=== PATIENT | male | born 1970 ===

== ENCOUNTER 2019-03-10 22:37 | Emergency (ER) | payer SELFPAY ==
[2019-03-10 23:27] LABS: BASO % 0.4 % (0.0-2.0); EOS # 0.1 K/uL (0.0-0.7); EOS % 1.3 % (0.0-4.0); HEMOGLOBIN 15.6 g/dL (12.0-18.0); LYMPH # 3.1 K/uL (1.0-4.3); LYMPH % 40.5 % (20.0-40.0); MEAN CELL VOLUME 92.9 fL (80.0-94.0); MEAN CORPUSCULAR HEMOGLOBIN 31.4 pg (27.0-31.0); MEAN CORPUSCULAR HGB CONC 33.8 g/dL (33.0-37.0); MEAN PLATELET VOLUME 8.1 fL (7.2-11.7); MONO # 0.7 K/uL (0.0-0.8); MONO % 9.4 % (0.0-10.0); NEUT # 3.7 K/uL (1.8-7.0); NEUT % 48.4 % (50.0-75.0); NRBC % 0.1 % (0.0-2.0); RBC 4.95 Mil/uL (4.40-5.90); RED CELL DISTRIBUTION WIDTH 13.2 % (11.5-14.5); WHITE BLOOD COUNT 7.5 K/uL (4.8-10.8)
[2019-03-10 23:29] LABS: PROTHROMBIN TIME 11.2 SECONDS (9.7-12.2)
[2019-03-10 23:33] LABS: ALB/GLOB RATIO 1.4 (1.0-2.1); ALBUMIN 4.4 g/dL (3.5-5.0); ALT/SGPT 30 U/L (21-72); AST/SGOT 26 U/L (17-59); BLOOD UREA NITROGEN 16 mg/dL (9-20); CALCIUM 9.2 mg/dl (8.6-10.4); GFR NON-AFRICAN AMERICAN > 60
[2019-03-11] MEDS ORDERED: Aspirin 325 mg EC Tablets PO STA (00:11)
--- NOTE | 2019-03-11 00:11 | C.PDOC ---
History Of Present Illness Patient presents with intermittent chest discomfort, unrelated to food, exercise or movement. lasts a few seconds . No f/c/n/v. Speaking in complete sentences Time Seen by Provider: 03/11/19 00:11 Chief Complaint (Nursing): Chest Pain History Per: Patient History/Exam Limitations: no limitations Onset/Duration Of Symptoms: Days (21) Current Symptoms Are (Timing): Still Present Context: Other Severity: Mild Pain Scale Rating Of: 3 Quality: Dull Associated Symptoms: denies: Nausea, Dyspnea Modifying Factors: None Exacerbating Factors: None Alleviating Factors: None Recent travel outside of the [place]: No Additional History Per: Patient Past Medical History Reviewed: Historical Data, Nursing Documentation, Vital Signs Vital Signs: Last Vital Signs Temp 97.3 F L 03/10/19 22:41 Pulse 72 03/10/19 23:11 Resp 18 03/10/19 22:41 BP 131/80 03/10/19 22:41 Pulse Ox 99 03/10/19 22:41 Family History: States: No Known Family Hx - Social History Hx Alcohol Use: No Hx Substance Use: No - Immunization History Hx Tetanus Toxoid Vaccination: No Hx Influenza Vaccination: No Hx Pneumococcal Vaccination: No Review Of Systems Constitutional: Negative for: Fever, Chills Eyes: Negative for: Vision Change ENT: Negative for: Throat Pain Cardiovascular: Positive for: Chest Pain Respiratory: Negative for: Shortness of Breath Gastrointestinal: Negative for: Abdominal Pain Musculoskeletal: Negative for: Back Pain Skin: Negative for: Rash Neurological: Negative for: Weakness Psych: Negative for: Anxiety Physical Exam - Physical Exam Appears: Non-toxic Skin: Warm, Dry Oral Mucosa: Moist Neck: Supple Chest: Symmetrical Cardiovascular: Rhythm Regular Respiratory: No Rales, No Rhonchi, No Wheezing Gastrointestinal/Abdominal: Soft, No Tenderness, No Distention Back: No CVA Tenderness Extremity: No Normal ROM Extremity: Bilateral: Atraumatic Neurological/Psych: Oriented x3 Gait: Steady ED Course And Treatment - Laboratory Results Result Diagrams: 03/10/19 23:18 03/10/19 23:18 Lab Results: PT 11.2 SECONDS (9.7-12.2) 03/10/19 23:18 INR 1.0 03/10/19 23:18 APTT 34 SECONDS (21-34) 03/10/19 23:18 Troponin I < 0.0120 ng/mL (0.00-0.120) 03/10/19 23:18 Total Bilirubin 0.5 mg/dL (0.2-1.3) 03/10/19 23:18 AST 26 U/L (17-59) 03/10/19 23:18 ALT 30 U/L (21-72) 03/10/19 23:18 Alkaline Phosphatase 79 U/L (38-126) 03/10/19 23:18 Total Protein 7.6 g/dL (6.3-8.3) 03/10/19 23:18 Albumin 4.4 g/dL (3.5-5.0) 03/10/19 23:18 Globulin 3.2 gm/dL (2.2-3.9) 03/10/19 23:18 Albumin/Globulin Ratio 1.4 (1.0-2.1) 03/10/19 23:18 ECG: Interpreted By Me, Viewed By Me ECG Rhythm: Sinus Rhythm (65), Nonspecific Changes O2 Sat by Pulse Oximetry: 99 Pulse Ox Interpretation: Normal - Radiology CXR: Interpreted by Me, Viewed By Me CXR Interpretation: No: Infiltrates, Fracture, Pnemothorax Against Medical Advice - AMA Patient Left Against Medical Advice: The patient declines admission to the hospital and wishes to leave the Emergency Department. This action is against my medical advice. This decision was made with informed refusal. The patient was told that admission to the hospital is necessary. Explanation of the reasons why were discussed. The risks of leaving were explained to the patient and include, but are not limited to, worsening of known or currently unknown conditions, permanent disability and from undiagnosed or untreated conditions. The patient has the capacity to make this informed decision and understands my explanation of the current medical problem and risks of leaving. The patient voluntarily accepts these risks and signed an AMA form documenting our conversation. The patient was given the opportunity to ask questions and reconsider. The patient was encouraged to return to the Emergency Department at any time for fur ther care. Disposition Counseled Patient/Family Regarding: Studies Performed, Diagnosis, Need For Followup - Disposition Disposition: AGAINST MEDICAL ADVICE Disposition Time: 00:11 Condition: FAIR Instructions: Chest Pain (DC), Hiatal Hernia (DC) Forms: Unblab (Maltese) - Clinical Impression Clinical Impression: Chest pain, Hiatal hernia
[2019-03-11] MEDS ORDERED: Aspirin 325 mg EC Tablets PO ONE (00:45)
[2019-03-11] MEDS ORDERED: Iodixanol 320 MG/ML 100 ML BOTTLE IV ONE (01:12)
[2019-03-11 03:02] VITALS: BP 115/82; PULSE 83; RESP 18; TEMP 98
[2019-03-11 04:01] VITALS: O2SAT 99
--- NOTE | 2019-03-11 09:23 | RAD ---
Date of service: 03/11/2019 HISTORY: chest pain COMPARISON: None available. TECHNIQUE: 1 view obtained. FINDINGS: LUNGS: No acute consolidation. Diminished inspiratory volume. PLEURA: No significant pleural effusion identified, no pneumothorax apparent. CARDIOVASCULAR: No aortic atherosclerotic calcification present. Normal cardiac size. No pulmonary vascular congestion. OSSEOUS STRUCTURES: No significant abnormalities. VISUALIZED UPPER ABDOMEN: Normal. OTHER FINDINGS: None. IMPRESSION: No acute cardiopulmonary disease appreciated.
--- NOTE | 2019-03-11 11:21 | CT ---
Date of service: 03/11/2019 PROCEDURE: CT Chest with contrast (Pulmonary Angiogram) HISTORY: cp, sob COMPARISON: None available. TECHNIQUE: Axial computed tomography images were obtained of the chest in the pulmonary arterial phase of enhancement. Coronal and sagittal reformatted images were created and reviewed. Intravenous contrast dose: Visipaque 320, 100 cc Radiation dose: Total exam DLP = 531.34 mGy-cm. This CT exam was performed using one or more of the following dose reduction techniques: Automated exposure control, adjustment of the mA and/or kV according to patient size, and/or use of iterative reconstruction technique. FINDINGS: PULMONARY ARTERIES: Unremarkable. No pulmonary embolism. AORTA: No acute findings. No thoracic aortic aneurysm. No aortic atherosclerotic calcification or mural plaque present. LUNGS: Minimal bilateral dependent atelectasis. No nodule, mass or pulmonary consolidation. PLEURAL SPACES: Unremarkable. No effusion or pneumothorax. HEART: The thoracic inlet appears unremarkable. No cardiomegaly. No significant pericardial effusion. The main pulmonary artery is normal in caliber. LYMPH NODES: No significant lymphadenopathy. BONES, CHEST WALL: Unremarkable. No fracture or destructive lesion. OTHER FINDINGS: Small hiatal hernia. IMPRESSION: Unremarkable CT pulmonary angiogram. No pulmonary embolus. No acute infiltrate, pleural or pericardial effusion. No pneumothorax bilaterally. No significant lymphadenopathy.
--- NOTE | 2019-03-11 16:54 | CARD ---
APPROVED REPORT Date of service: 03/10/2019 EKG Measurement Heart [id number] <Conclusion> Normal sinus rhythm Normal ECG
== END 2019-03-11 03:03 | disposition left against medical advice (07) ==
LOC: C.ER 22:37
DX: R07.9 Chest pain, unspecified (principal); K44.9 Diaphragmatic hernia without obstruction or gangrene
CPT/HCPCS: 71045; 71275; 80053; 83880; 84484; 85025; 85610; 85730; 93005; 99285; Q9967